=== PATIENT | female | born 1965 | race American Indian/Alaskan Native ===

== ENCOUNTER 2017-01-03 07:20 | Outpatient (CLI) | payer OTHER ==
--- NOTE | 2017-01-03 11:38 | PET Report ---
PET SB TO MT initial: HISTORY: Breast cancer. TECHNIQUE: 13.2 millicuries F-18 FDG was administered intravenously. Noncontrast CT images and PET images were obtained from the skull base to the proximal thighs. Fused images were reviewed on a workstation. The patient's blood glucose level measured 96. COMPARISON: No previous PET/CT. FINDINGS: BRAIN: physiologic FDG uptake in the imaged brain. NECK: physiologic FDG uptake. MEDIASTINUM: There is a focus of increased radiotracer uptake at the left hilum with left kidney measuring 8.9. Appears to correspond to a solitary left hilar lymph node. LUNGS: A 2.7 x 3.2 cm mass is identified near the apex of the left lung with SUV max measuring 12.8. The remainder of the lungs are clear. PLEURA/PERICARDIUM: physiologic FDG uptake. THORACIC LYMPH NODES: physiologic FDG uptake. HEPATOBILIARY: physiologic FDG uptake. Mean liver SUV measures 3.3. PANCREAS: physiologic FDG uptake. SPLEEN: physiologic FDG uptake. ADRENAL GLANDS: physiologic FDG uptake. KIDNEYS/RENAL COLLECTING SYSTEMS: physiologic FDG uptake. BOWEL/MESENTERY: physiologic FDG uptake. PELVIC VISCERA: physiologic FDG uptake. ABDOMINAL/PELVIC LYMPH NODES: physiologic FDG uptake. MUSCULOSKELETAL: physiologic FDG uptake. IMPRESSION: 2.7 x 3.2 cm hypermetabolic left upper lobe mass and a solitary hypermetabolic left hilar lymph node consistent with metastatic disease. No abnormal activity inferior to the diaphragm.
== END 2017-01-03 07:21 | disposition home or self-care (01) ==
LOC: PET 07:20
PROVIDERS: ATTEND Internal Medicine Hematology & Oncology
DX: C50.019 Malignant neoplasm of nipple and areola, unspecified female breast (principal); M81.0 Age-related osteoporosis without current pathological fracture; R91.8 Other nonspecific abnormal finding of lung field; Z79.899 Other long term (current) drug therapy
CPT/HCPCS: 78815; 82962; A9552